=== PATIENT | female | born 1990 | race Caucasian/White ===

== ENCOUNTER 2024-09-12 07:48 | Emergency (ER) | payer MEDICAID ==
[2024-09-12] MEDS: Ketorolac 30 MG/ML SDV IM ONE (08:49)
[2024-09-12 08:57] VITALS: BP 108/57; PULSE 64
== END 2024-09-12 08:57 | disposition home or self-care (01) ==
LOC: JP.ED 07:48
DX: M25.512 Pain in left shoulder (principal); F17.210 Nicotine dependence, cigarettes, uncomplicated; Z88.5 Allergy status to narcotic agent; Z88.8 Allergy status to other drugs, medicaments and biological substances; Z79.899 Other long term (current) drug therapy
CPT/HCPCS: 96372; 99283; J1885

== ENCOUNTER 2024-09-17 10:23 | Emergency (ER) | payer SELFPAY ==
[2024-09-17 10:41] VITALS: BP 119/32; PULSE 57
== END 2024-09-17 11:07 | disposition home or self-care (01) ==
LOC: JP.ED 10:23
DX: M25.512 Pain in left shoulder (principal); J45.909 Unspecified asthma, uncomplicated; E11.9 Type 2 diabetes mellitus without complications; Z88.0 Allergy status to penicillin; Z79.899 Other long term (current) drug therapy
CPT/HCPCS: 99283